=== PATIENT | male | born 1970 | race Caucasian/White ===

== ENCOUNTER 2024-05-29 07:30 | Emergency (ER) | payer OTHER, MEDICAID ==
[~2024-05-29] VITALS: Ht 172.7 cm; Wt 65.9 kg
[2024-05-29 07:35] VITALS: PULSE 57; RESP 18; TEMP 97.8
== END 2024-05-29 07:53 | disposition left against medical advice (07) ==
LOC: ER 07:31
DX: U07.1 COVID-19 (principal); R11.0 Nausea; R19.7 Diarrhea, unspecified; Z53.21 Procedure and treatment not carried out due to patient leaving prior to being seen by health care provider